=== PATIENT | female | born 1995 | race Caucasian/White ===

== ENCOUNTER 2016-10-27 09:44 | Emergency (ER) | payer MEDICAID, OTHER ==
[~2016-10-27] VITALS: Ht 175.3 cm; Wt 75.0 kg
[~2016-10-27 09:44] MED LIST: IBUP600 PO; PERI8.6T PO
[2016-10-27 09:45] VITALS: BP 136/81; PULSE 92; RESP 15; TEMP 98.1; O2SAT 99
--- NOTE | 2016-10-27 10:01 | PD ---
HPI Chief Complaint: Eye Problems/Injury Time Seen by Provider: 09:53 Travel History International Travel<30 days: No Contact w/Intl Traveler<30days: No Traveled to known affect area: No History of Present Illness HPI 21-year-old female presents the emergency Department with left eye itching and discharge this morning. Patient states recently her son had similar symptoms treated last week. She denies fever, chills, ear pain, sore throat, or other constitutional symptoms. She denies visual changes. She does not wear contacts. She denies any other injury. Patient states the eye is itchy but not painful. She is allergic to Augmentin. PFSH Past Medical History ?: Not Social History Alcohol Use: No Tobacco Use: No Allergies-Medications (Allergen,Severity, Reaction): Coded Allergies: Augmentin (Verified Adverse Reaction, Mild, Cramping, 02/05/15) Reported Meds & Prescriptions Reported Meds & Active Scripts Active Rachel-Colace 8.6-50 mg (Sennosides-Docusate Sodium) 1 Tab Tab 2 Tab PO Q12H PRN Motrin 600 Mg Tab (Ibuprofen) 600 Mg Tab 600 Mg PO Q6H PRN Review of Systems Except as stated in HPI: all other systems reviewed are Neg General / Constitutional: No: Fever Eyes: Positive: Drainage, Redness, Foreign Body Sensation, No: Diploplia, Blurred Vision, Photophobia, Pain, Tearing, Blind Spots, Visual changes, Blindness HENT: No: Headaches, Vertigo, Lightheadedness, Sore Throat, Rhinitis, Rhinorrhea, Congestion, Nosebleed, Neck Stiffness, Neck Pain, Earache Cardiovascular: No: Chest Pain or Discomfort Respiratory: No: Shortness of Breath Gastrointestinal: No: Abdominal Pain Genitourinary: No: Dysuria Musculoskeletal: No: Pain Skin: No Rash Neurologic: No: Weakness Psychiatric: No: Depression Endocrine: No: Polydipsia Hematologic/Lymphatic: No: Easy Bruising Physical Exam Narrative GENERAL: Patient is in no acute distress. SKIN: Warm and dry. Normal color. Normal turgor. No rash. HEAD: Atraumatic. Normocephalic. EYES: Pupils equal and round. No scleral icterus. Mild injection in the left conjunctiva with small amount of purulent drainage noted. Right eye is normal. ENT: No nasal bleeding or discharge. Mucous membranes pink and moist. TMs are clear bilaterally. Pharynx is clear. Airway is patent. NECK: Trachea midline. Supple nontender without lymphadenopathy. CARDIOVASCULAR: Regular rate and rhythm. RESPIRATORY: No accessory muscle use. Clear to auscultation. Breath sounds equal bilaterally. MUSCULOSKELETAL: Extremities without clubbing, cyanosis, or edema. No obvious deformities. NEUROLOGICAL: Awake and alert. No obvious cranial nerve deficits. Motor grossly within normal limits. Five out of 5 muscle strength in the arms and legs. Normal speech. PSYCHIATRIC: Appropriate mood and affect; insight and judgment normal. Data Data Last Documented VS Vital Signs Date Time Temp Pulse Resp B/P Pulse Ox O2 Delivery O2 Flow Rate FiO2 10/27/16 09:45 98.1 92 15 136/81 99 MDM Medical Decision Making Medical Screen Exam Complete: Yes Emergency Medical Condition: Yes Differential Diagnosis Upper respiratory infection. Conjunctivitis. Corneal abrasion Narrative Course Patient will be treated for conjunctivitis with Maxitrol ophthalmic drops every 4 hours while awake for the next 5-7 days. Work note is given. Patient to follow up if symptoms do not improve or worsen as discussed. Diagnosis Primary Impression: Conjunctivitis Qualified Code: H10.32 - Acute conjunctivitis of left eye, unspecified acute conjunctivitis type Referrals: Resort Desk Clerk Patient Instructions: Conjunctivitis (ED), General Instructions Departure Forms: Work Release Enter return to work date: Oct 28, 2016 Additional Instructions: Patient will be treated for conjunctivitis with Maxitrol ophthalmic drops every 4 hours while awake for the next 5-7 days. Work note is given. Patient to follow up if symptoms do not improve or worsen as discussed. Med/Other Pt SpecificInfo: Prescription(s) given Disposition: 01 DISCHARGE HOME Condition: Stable Randal Armijo Oct 27, 2016 10:01
[2016-10-27] MEDS ORDERED: MAXI5O EACH EYE (10:02)
== END 2016-10-27 10:11 | disposition home or self-care (01) ==
LOC: NEPK 09:44
DX: H10.32 Unspecified acute conjunctivitis, left eye (principal)
CPT/HCPCS: 99283

== ENCOUNTER 2017-06-28 22:52 | Emergency (ER) | payer MEDICAID ==
[~2017-06-28 22:52] MED LIST changes: -IBUP600 PO; +MAXI5O EACH EYE; -PERI8.6T PO
[2017-06-28] MEDS ORDERED: SE-NTAB3 PO (23:42)
[2017-06-28] MEDS ORDERED: ONDANSETRON ODT 4 MG TAB PO ONE (23:45)
[2017-06-28] MEDS ORDERED: diphenhydrAMINE HCL 50 MG CAP PO ONE (23:45)
--- NOTE | 2017-06-28 23:46 | PD ---
HPI Chief Complaint OSULLIVAN, N/V Date Seen: Jun 28, 2017 Time Seen: 23:36 Travel History International Travel<30 Days: No Contact w/Intl Traveler<30Days: No Known Affected Area: No History of Present Illness HPI pt. is a 22 y/o @ 36 6/7 weeks present w/ c/o osullivan, n/v. pt. states over the last day has had increased n/v, especially with osullivan. pt. states has had frontal osullivan for the last day. pt. states had some dizziness when stands. has some frontal facial pressure relieved when stands. pt. w/ h/o seasonal allergies. +FM, no LOF/VB. denies scotomata/visual disturbances/aura. no cp/ sob. able to saurabh po. Weeks Gestation: 36 Para: 2 : 3 History Past Medical History Medical History: Denies Significant Hx Past Surgical History Surgical History: No Previous Surgery Family History Family History: Negative Social History Alcohol Use: No Tobacco Use: No Substance Abuse: No Allergies-Medications (Allergen,Severity, Reaction): Coded Allergies: amoxicillin (Unverified Adverse Reaction, Mild, Cramping, 12/10/16) clavulanic acid (Unverified Adverse Reaction, Mild, Cramping, 12/10/16) Home Meds Active Scripts Fmzbvpvi-Xpmwikqns-Cjolxocdvmdxi Opth Drops (Maxitrol Opth Drops) 3.5-10,000- 0.1 Mg-Units-% Susp, 1 DROP EACH EYE Q4H for Infection, #1 BOTTLE Prov:Mariah Rhodes MD 10/27/16 Review of Systems Except as stated in HPI: all other systems reviewed are Neg Physical Exam Narrative GENERAL: Well-nourished, well-developed patient. SKIN: Warm and dry. HEAD: Normocephalic and atraumatic. EYES: No scleral icterus. No injection or drainage. ENT: No nasal drainage noted. Mucous membranes pink. Airway patent. NECK: Supple, trachea midline. No JVD. CARDIOVASCULAR: Regular rate and rhythm without murmurs, gallops, or rubs. RESPIRATORY: Breath sounds equal bilaterally. No accessory muscle use. ABDOMEN/GI: Abdomen soft, non-tender, bowel sounds present, no rebound, no guarding Gravid FHT's: Category: 1 Reactive: + Variability: mod Decels: none EXTREMITIES: No cyanosis or edema. BACK: Nontender without obvious deformity. No CVA tenderness. NEUROLOGICAL: Awake and alert. Motor and sensory grossly within normal limits. Five out of 5 muscle strength in all muscle groups. Normal speech. Data Data Vital Signs Reviewed: Yes Orders Orders Diphenhydramine (Benadryl) (06/28/17 23:45) Ondansetron Odt (Zofran Odt) (06/28/17 23:45) [facility] Medical Record Reviewed: Yes Plan @ 36 6/7 weeks w/ most prob sinusitis 2/2 allergies. condition d/w pt. pt. given 50mg benadryl and 4mg zofran w/ resolution. pt. to be d/c to home. pt. given precautions for return. all ? answered. f/u as sched. Diagnosis Diagnosis: Primary Impression: Allergic rhinitis Additional Impression: 36 weeks gestation of Deejay Frankel Jr., MD Jun 28, 2017 23:45
== END 2017-06-29 00:21 | disposition home or self-care (01) ==
LOC: HOBED 22:52
DX: O99.513 Diseases of the respiratory system complicating pregnancy, third trimester (principal); J30.9 Allergic rhinitis, unspecified; Z3A.36 36 weeks gestation of pregnancy
CPT/HCPCS: 59025; 99285; Q0163

== ENCOUNTER 2017-07-15 15:34 | Inpatient (IN) | payer MEDICAID ==
[~2017-07-15] VITALS: Ht 175.3 cm; Wt 98.0 kg
[2017-07-15] VITALS (60 sets, daily range): BP systolic 112–147; BP diastolic 34–88; PULSE 74–113; RESP 18; TEMP 98.1; O2SAT 99–100
[~2017-07-15 15:34] MED LIST changes: +SE-NTAB3 PO
--- NOTE | 2017-07-15 17:27 | HHI.HP ---
HPI Chief Complaint new swelling, elevated BP at routine OB visit Date Seen: Jul 15, 2017 Travel History International Travel<30 Days: No Contact w/Intl Traveler<30Days: No Known Affected Area: No History of Present Illness HPI 22 yo with cortes IUP at 39w2d presents for routine OB visit today, c /o new swelling over past week and vaginal bleeding since 2am. No contractions , no leakage of fluid. Decreased movement. No vision changes or headaches, no RUQ pain. BP is elevated in office 130/78. +1 proteinuria on Udip. Weeks Gestation: 39 Para: 2 : 3 Last Menstrual Period: Oct 04, 2016 Miscarriage: 0 : 0 History Past Medical History Narrative Medical history of chlamydia in 01/2017 & 04/2017 (reinfection, had negative test of cure 02/2017 & 05/2017) history of gestational diabetes with G1 Obstetric History Obstetric History FT 02/06/14 female 6#8oz gestational diabetes FT 02/05/15 male 8#11oz Past Surgical History Narrative Surgical tonsillectomy Family History Family History: Negative Social History Alcohol Use: No Tobacco Use: No Substance Abuse: No Allergies-Medications (Allergen,Severity, Reaction): Coded Allergies: amoxicillin (Verified Adverse Reaction, Mild, Cramping, 07/15/17) clavulanic acid (Verified Adverse Reaction, Mild, Cramping, 07/15/17) Home Meds Reported Medications Vit W/ Docusate-Fe Fu (Se- 19 29-1 mg) 29 Mg Iron-1 Mg-25 Mg Tab, 1 TAB PO DAILY for Nutritional Supplement, TAB 0 Refills 06/28/17 Discontinued Scripts Lftpaeyn-Poximlvxt-Cjjthnhdxjavb Opth Drops (Maxitrol Opth Drops) 3.5-10,000- 0.1 Mg-Units-% Susp, 1 DROP EACH EYE Q4H for Infection, #1 BOTTLE Prov:Mariah Rhodes MD 10/27/16 Review of Systems General / Constitutional: Weight Gain, No: Fever, Chills, Other Eyes: No: Diploplia, Blurred Vision, Visual changes, Pain, Photophobia HENT: No: Headaches, Vertigo, Lightheadedness Cardiovascular: No: Irregular Rhythm, Chest Pain or Discomfort, Palpitations, Tachycardia, Syncope, Varicosities, Edema, Cyanosis Respiratory: No: Cough, Short of Breath, Other Gastrointestinal: No: Nausea, Vomiting, Diarrhea Genitourinary: Pelvic Pain, Vaginal Bleeding, No: Decreased Urinary Output, Oliguria Musculoskeletal: Edema, No: Limited ROM, Weakness, Cramping, Pain Skin: No Rash, No Itching, No Dryness, No Lumps, No Change in Pigmentation, No Change in Nails, No Alopecia, No Lesions Neurologic: No: Weakness, Dizziness, Syncope, Focal Abnormalities, Coordination Problem, Headache, Slurred Speech, Seizures Psychiatric: No: Depression, Suicidal Ideations, Homicidal Ideation Endocrine: No: Heat Intolerance, Cold Intolerance, Polydipsia, Polyuria, Other Physical Exam Narrative GENERAL: Well-nourished, well-developed patient. swollen appearance SKIN: Warm and dry. HEAD: Normocephalic and atraumatic. EYES: No scleral icterus. No injection or drainage. ENT: No nasal drainage noted. Mucous membranes pink. Airway patent. NECK: Supple, trachea midline. No JVD. CARDIOVASCULAR: Regular rate and rhythm without murmurs, gallops, or rubs. RESPIRATORY: Breath sounds equal bilaterally. No accessory muscle use. BREASTS: ABDOMEN/GI: Abdomen soft, non-tender, bowel sounds present, no rebound, no guarding Gravid to [39] weeks size Fundal Height: [40] GENITOURINARY: External Genitalia: intact and normal in appearance BUS glands: [wnl] Cervix: [mid] Dilatation: [2] Effacement: [50] Station: [-2] Presentation: [vtx] Membranes: [intact] FHT's: +140s in office EXTREMITIES: No cyanosis, +2 edema to b/l shins. BACK: Nontender without obvious deformity. No CVA tenderness. NEUROLOGICAL: Awake and alert. Motor and sensory grossly within normal limits. Five out of 5 muscle strength in all muscle groups. Normal speech. Caprini VTE Risk Assessment Caprini VTE Risk Assessment: No/Low Risk (score <= 1) VTE Pharm Contraindication: High risk for bleeding Caprini Risk Assessment Model Point Value = 1 Point Value = 2 Point Value = 3 Point Value = 5 Age 41-60 Minor surgery BMI > 25 kg/m2 Swollen legs Varicose veins or History of unexplained or recurrent spontaneous Oral contraceptives or hormone replacement Sepsis (< 1 month) Serious lung disease, including pneumonia (< 1 month) Abnormal pulmonary function Acute myocardial infarction Congestive heart failure (< 1 month) History of inflammatory bowel disease Medical patient at bed rest Age 61-74 Arthroscopic surgery Major open surgery (> 45 min) Laparoscopic surgery (> 45 min) Malignancy Confined to bed (> 72 hours) Immobilizing plaster cast Central venous access Age >= 75 History of VTE Family history of VTE Factor V Leiden Prothrombin [id number] Lupus anticoagulant Anticardiolipin antibodies Elevated serum homocysteine Heparin-induced thrombocytopenia Other congenital or acquired thrombophilia Stroke (< 1 month) Elective arthroplasty Hip, pelvis, or leg fracture Acute spinal cord injury (< 1 month) Prophylaxis Regimen Total Risk Factor Score Risk Level Prophylaxis Regimen 0-1 Low Early ambulation 2 Moderate Order ONE of the following: *Sequential Compression Device (SCD) *Heparin 5000 units SQ BID 3-4 Higher Order ONE of the following medications: *Heparin 5000 units SQ TID *Enoxaparin/Lovenox 40 mg SQ daily (WT < 150 kg, CrCl > 30 mL/min) *Enoxaparin/Lovenox 30 mg SQ daily (WT < 150 kg, CrCl > 10-29 mL/min) *Enoxaparin/Lovenox 30 mg SQ BID (WT < 150 kg, CrCl > 30 mL/min) AND/OR *Sequential Compression Device (SCD) 5 or more Highest Order ONE of the following medications: *Heparin 5000 units SQ TID (Preferred with Epidurals) *Enoxaparin/Lovenox 40 mg SQ daily (WT < 150 kg, CrCl > 30 mL/min) *Enoxaparin/Lovenox 30 mg SQ daily (WT < 150 kg, CrCl > 10-29 mL/min) *Enoxaparin/Lovenox 30 mg SQ BID (WT < 150 kg, CrCl > 30 mL/min) AND *Sequential Compression Device (SCD) Data Data Vital Signs Reviewed: Yes Group B Strep: Positive Assessment/Plan Problem List: (1) Gestational hypertension ICD Codes: O13.9 - Gestational [-induced] hypertension without significant proteinuria, unspecified trimester Status: Acute Qualifiers: Qualified Codes: O13.3 - Gestational [-induced] hypertension without significant proteinuria, third trimester (2) Vaginal bleeding during ICD Codes: O46.90 - Antepartum hemorrhage, unspecified, unspecified trimester Status: Acute Assessment and Plan 22 yo with cortes IUP at 39w2d by 12w sonogram, presented to office visit with new elevated BP, edema, proteinuria, and vaginal bleeding. 1) new elevated BP and proteinuria: admit to [facility] for serial BPs and PIH workup, d /w pt may need labor induction if persistent abnormality; pt agreeable; favorable Henriquez score, multip 2) GBS +, for PPX in labor 3) status: vertex, reassuring FHTs in office Discharge Planning not meeting criteria Juanita Can MD Jul 15, 2017 17:27
[2017-07-15 17:45] LABS: AUTOMATED NEUTROPHIL # 11.2 TH/MM3 (1.8-7.7); BASOPHIL # 0.1 TH/MM3 (0-0.2); BASOPHIL % 0.4 % (0.0-2.0); EOSINOPHIL # 0.1 TH/MM3 (0-0.4); EOSINOPHIL % 0.6 % (0.0-4.0); HEMATOCRIT 39.5 % (35.0-46.0); HEMOGLOBIN 13.4 GM/DL (11.6-15.3); LYMPH % 18.5 % (9.0-44.0); LYMPHOCYTE # 2.8 TH/MM3 (1.0-4.8); MEAN CELL VOLUME 80.5 FL (80.0-100.0); MEAN CORPUSCULAR HEMOGLOBIN 27.4 PG (27.0-34.0); MEAN PLATELET VOLUME 7.9 FL (7.0-11.0); MONO % 5.9 % (0.0-8.0); MONOCYTE # 0.9 TH/MM3 (0-0.9); NEUT % 74.6 % (16.0-70.0); PLATELET COUNT 290 TH/MM3 (150-450); RED BLOOD COUNT 4.91 MIL/MM3 (4.00-5.30); RED CELL DISTRIBUTION WIDTH 13.3 % (11.6-17.2)
[2017-07-15 18:17] LABS: BILIRUBIN, URINE NEG (NEG); BLOOD, URINE NEG (NEG); GLUCOSE,URINE NEG (NEG); KETONE, URINE NEG (NEG); NITRITE,URINE NEG (NEG); PH, URINE 5.5 (5.0-8.5); SQUAMOUS EPITHELIAL CELL URINE <1 /hpf (0-5); URINE COLOR YELLOW (YELLW/STRAW); URINE LEUKOCYTE ESTERASE NEG (NEG)
[2017-07-15 18:19] LABS: ALKALINE PHOSPHATASE 74 U/L (45-117); TOTAL BILIRUBIN ADULT 0.4 MG/DL (0.2-1.0); TOTAL PROTEIN 6.8 GM/DL (6.4-8.2)
[2017-07-15 18:22] LABS: ALBUMIN 2.7 GM/DL (3.4-5.0); ALT (GPT) 16 U/L (10-53); AST (GOT) 23 U/L (15-37); BICARBONATE 25.6 MEQ/L (21.0-32.0); BLOOD UREA NITROGEN 11 MG/DL (7-18); CALCIUM 8.7 MG/DL (8.5-10.1); CHLORIDE 104 MEQ/L (98-107); CREATININE 0.57 MG/DL (0.50-1.00); GLOMERULAR FILTRATION RATE 130 ML/MIN (>89); GLUCOSE,RANDOM 64 MG/DL (74-106); SODIUM (NA) 138 MEQ/L (136-145)
[2017-07-15] MEDS ORDERED: LACTATED RINGER'S 1000 ML INJ 1,000 ML IV PRN (18:55)
[2017-07-15] MEDS ORDERED: LIDOCAINE HCL 1% 50 ML VIAL I-DERMAL PRN (19:00)
[2017-07-15] MEDS ORDERED: SODIUM CHLORIDE 0.9% FLUSH 10 ML FLUSH IV FLUSH PRN (19:00)
[2017-07-15] MEDS ORDERED: MINERAL OIL 10 ML VIAL TOPICAL PRN (19:00)
[2017-07-15] MEDS ORDERED: SODIUM CHLORID 0.9% 500 ML INJ 500 ML IV PRN (19:00)
[2017-07-15] MEDS ORDERED: PENICILLIN G POTASSIUM INJ 5,000,000 UNITS in SODIUM CHLORIDE 0.9% INJ 100 ML IV ONE (19:00)
[2017-07-15] MEDS ORDERED: CITRIC ACID-SODIUM CITRATE LIQ 30 ML UDC PO SCH (19:00)
[2017-07-15] MEDS ORDERED: LACTATED RINGER'S 1000 ML INJ 1,000 ML IV SCH (19:00)
[2017-07-15] MEDS ORDERED: ONDANSETRON HCL 4 MG/2 ML VIAL IV PUSH PRN (19:00)
[2017-07-15] MEDS ORDERED: LIDOCAINE HCL 1% 50 ML VIAL INFIL PRN (19:00)
[2017-07-15] MEDS ORDERED: OXYTOCIN 30 UNITS-500ML PREMIX 500 ML IV ONE (19:00)
--- NOTE | 2017-07-15 19:13 | HHI.PR ---
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 A/P: 22 yo at 39w2d by 12w US, orginally sent for obs and r/ow PREC but now in labor. 1. IUP: cat 1-2 tracing - cephalic, GBS pos, EFW 7-8lbs 2. Labor: still in latent labor, if no further change, asked OB hospitalist to AROM. 3. GHTN: new dx today, BPs mild range to normotensive, HELLP labs and P:C WNL, no sn/sx of prec, continue to trend BPs. 4. GBS pos: continue PCN for ppx, augmentin caused her GI upset in past Obinna Burnette MD Jul 15, 2017 19:13
[2017-07-15] MEDS ORDERED: SODIUM CHLOR 0.9% 1000 ML INJ 1,000 ML IV PRN (19:15)
[2017-07-15] MEDS ORDERED: fentaNYL 2MCG-BUPIV 0.125% INJ 100 ML ONE (20:32)
[2017-07-15] MEDS ORDERED: ePHEDrine/NS 25 MG/5 ML SYRINGE ONE (20:32)
[2017-07-15] MEDS ORDERED: SODIUM CHLORIDE 0.9% FLUSH 10 ML FLUSH IV FLUSH SCH (21:00)
[2017-07-15] MEDS ORDERED: ePHEDrine/NS 25 MG/5 ML SYRINGE IV PUSH PRN (21:30)
[2017-07-15] MEDS ORDERED: DO NOT ADMINISTER ANTICOAGULANTS PRN (21:30)
[2017-07-15] MEDS ORDERED: fentaNYL 2MCG-BUPIV 0.125% 100 ML EPIDURAL SCH (21:30)
[2017-07-15] MEDS ORDERED: NO SYSTEM NARCOTICS PRN (21:30)
[2017-07-15] MEDS ORDERED: PENICILLIN G POTASSIUM INJ 2,500,000 UNITS in SODIUM CHLORIDE 0.9% INJ 100 ML IV SCH (23:00)
[2017-07-15] MEDS ORDERED: LIDOCAINE HCL 1% 20 ML VIAL ONE (23:44)
[2017-07-16] VITALS (15 sets, daily range): BP systolic 124–156; BP diastolic 70–86; PULSE 73–107; RESP 18–20; TEMP 97.9–99.2; O2SAT 98–100
--- NOTE | 2017-07-16 00:23 | HHI.DCPOC ---
Discharge Care Plan Diagnosis: (1) (normal spontaneous vaginal delivery) (2) 39 weeks gestation of (3) Gestational hypertension Your Health Problems Are: Vaginal delivery Report Symptoms to Your Doctor -Temperature above 100.5 degrees -Redness, of incision or excessive or foul smelling drainage -Unusual pain or calf pain -Increased vaginal bleeding -Painful or difficulty urinating -Feelings of extreme sadness or anxiety after 2 weeks Goals to Promote Your Health * To prevent worsening of your condition and complications * To maintain your health at the optimal level Directions to Meet Your Goals Take your medications as prescribed Follow your dietary instruction Follow activity as directed Ensure plenty of rest for recovery Drink fluids for hydration Keep your appointments as scheduled Take your immunizations and boosters as scheduled If your symptoms worsen call your PCP, if no PCP go to Urgent Care Center or Emergency Room Smoking is Dangerous to Your Health. Avoid second hand smoke Call the 24-hour crisis hotline for domestic abuse at Obinna Burnette MD Jul 16, 2017 00:22
--- NOTE | 2017-07-16 00:23 | PD.OB.DELI ---
Weeks gestation: 39 (39 weeks 3 days) Pt started active labor?: Yes Medical induction of labor?: No Artificial ROM date: Jul 16, 2017 Anesthesia: Epidural Episiotomy: None Vaginal Delivery: Normal, Spontaneous Presentation: Occiput anterior, Vertex Nuchal Cord: x1 (Reduced at perineum prior to delivery) Delayed cord clamping (45 sec): Yes Shoulder Dystocia: Other (No dystocia) : Female, Single Delivery date: Jul 16, 2017 Delivery time: 12:10 One Minute : 7 Five Minute : 9 Placenta: Spontaneous delivery, Intact, 3 vessel cord, Other (Within 30 minutes of delivery of infant) Laceration: No lacerations Estimated blood loss: 300 cc Additional Information Preoperative diagnoses: 1. Intrauterine 39 weeks and 3 days 2. Thin meconium 3. GBS positive status 4. Gestational hypertension Specimen: Placenta to disposal Additional findings: Thin meconium, vigorous , cord was clamped and cut at 45 seconds and handed to team for resuscitation Complications: None Description of procedure: The patient began pushing after the bed was broken down, the head upon was allowed to restitute naturally for delivery with a supported perineum, nuchal cord was reduced, with gentle downward guidance the anterior shoulder was delivered followed by gentle upper guidance for the posterior shoulder, the torso and lower extremities were delivered with ease and with continued perineal support. The had spontaneous cry and was placed on mom's abdomen for skin to skin contact, we allowed delayed cord clamping. After the cord was clamped and cut, cord blood was obtained. Pitocin was bolused and with fundal massage the placenta was delivered, there is minimal uterine bleeding and uterus was firm. The perineum, vagina and cervix were inspected and found intact. The patient tolerated the procedure well and was left in the birthing suite with her . Obinna Burnette MD Jul 16, 2017 00:23
[2017-07-16] MEDS ORDERED: WITCH HAZEL 50%/GLYCERIN 12.5% 40 PAD JAR TOPICAL PRN (00:30)
[2017-07-16] MEDS ORDERED: ACETAMINOPHEN 325 MG TAB PO PRN (00:30)
[2017-07-16] MEDS ORDERED: ONDANSETRON ODT 4 MG TAB PO PRN (00:30)
[2017-07-16] MEDS ORDERED: ALUMINUM/MAGNESIUM/SIMETH 30 ML CUP PO PRN (00:30)
[2017-07-16] MEDS ORDERED: ZOLPIDEM TARTRATE 5 MG TAB PO PRN (00:30)
[2017-07-16] MEDS ORDERED: BENZOCAINE 20% TOPICAL SPRAY 60 ML CAN TOPICAL PRN (00:30)
[2017-07-16] MEDS ORDERED: IBUPROFEN 800 MG TAB PO PRN (00:30)
[2017-07-16] MEDS ORDERED: OXYTOCIN 30 UNITS-500ML PREMIX 500 ML IV SCH (00:30)
[2017-07-16] MEDS ORDERED: DOCUSATE SODIUM 50 MG/SENNA 8.6 MG TAB PO PRN (00:30)
[2017-07-16] MEDS ORDERED: oxyCODONE/ACETAMINOPHEN 5 MG/325 MG TAB PO PRN ×2 (00:30)
[2017-07-16] MEDS ORDERED: SODIUM CHLORIDE 0.9% FLUSH 10 ML FLUSH IV FLUSH PRN (00:30)
[2017-07-16] MEDS ORDERED: SODIUM CHLORIDE 0.9% FLUSH 10 ML FLUSH IV FLUSH SCH (09:00)
[2017-07-16] MEDS ORDERED: MEASLES, MUMPS, RUBELLA VACCINE 0.5 ML VIAL SQ ONE (16:00)
[2017-07-16] MEDS ORDERED: DIPHTH/TETANUS/ACEL PERTUSSIS (BOOSTER) 0.5 ML VIAL/PFS IM ONE (16:00)
[2017-07-17 08:10] VITALS: BP 130/76; PULSE 81; RESP 16; TEMP 97.7
--- NOTE | 2017-07-17 11:13 | HHI.OB ---
Subjective Post Day: 1 Remarks doing well no issues nursing Objective Vitals/I&O Vital Signs Date Time Temp Pulse Resp B/P (MAP) Pulse Ox O2 Delivery O2 Flow Rate FiO2 07/17/17 08:10 97.7 81 16 130/76 (94) 07/16/17 19:20 97.9 79 18 137/86 (103) 98 07/16/17 15:30 140/80 (100) Objective Remarks blood pressures normal GENERAL: Well-nourished, well-developed patient. CARDIOVASCULAR: Regular rate and rhythm without murmurs, gallops, or rubs. RESPIRATORY: Breath sounds equal bilaterally. No accessory muscle use. ABDOMEN/GI: Abdomen soft, non-tender. Fundus: Firm, non-tender at umbilicus. GENITOURINARY: Light to moderate bleeding. EXTREMITIES: No cyanosis or edema, non-tender, without signs of DVT. Medications and IVs Current Medications Medications (Trade) Dose Ordered Sig/Tomer Route Start Time Stop Time Status Last Admin (Xylocaine 1% Inj (50 ml)) 0.1 ml UNSCH X1 PRN I-DERMAL 07/15/17 19:00 07/18/17 18:59 (Xylocaine 1% Inj (50 ml)) 10 ml UNSCH X1 PRN INFIL 07/15/17 19:00 07/17/17 18:59 (NS Flush) 2 ml BID IV FLUSH 07/16/17 09:00 (NS Flush) 2 ml UNSCH PRN IV FLUSH 07/16/17 00:30 (Tylenol) 650 mg Q4H PRN PO 07/16/17 00:30 (Motrin) 800 mg Q8H PRN PO 07/16/17 00:30 (Percocet 5-325 Mg) 1 tab Q4H PRN PO 07/16/17 00:30 (Percocet 5-325 Mg) 2 tab Q4H PRN PO 07/16/17 00:30 (Americaine 20% Top Spr) 1 spray Q4H PRN TOPICAL 07/16/17 00:30 (Tucks Pads) 1 applic QID PRN TOPICAL 07/16/17 00:30 (Rachel-Colace) 2 tab Q12H PRN PO 07/16/17 00:30 (Ambien) 5 mg HS PRN PO 07/16/17 00:30 (Mag-Al Plus Susp Liq) 15 ml Q8H PRN PO 07/16/17 00:30 (Zofran Odt) 4 mg Q6H PRN PO 07/16/17 00:30 Assessment/Plan Problem List: (1) Gestational hypertension ICD Codes: O13.9 - Gestational [-induced] hypertension without significant proteinuria, unspecified trimester Status: Acute Qualifiers: Qualified Codes: O13.3 - Gestational [-induced] hypertension without significant proteinuria, third trimester (2) Vaginal bleeding during ICD Codes: O46.90 - Antepartum hemorrhage, unspecified, unspecified trimester Status: Acute Assessment and Plan 22 yo with cortes IUP at 39w2d by 12w sonogram, presented to office visit with new elevated BP, edema, proteinuria, and vaginal bleeding. 1) new elevated BP and proteinuria: admit to [facility] for serial BPs and PIH workup, d /w pt may need labor induction if persistent abnormality; pt agreeable; favorable Henriquez score, multip 2) GBS +, for PPX in labor 3) status: vertex, reassuring FHTs in office PPD 1 no issues today. BPs resolved plan for discharge Thursday Discharge Planning not meeting criteria Alba Salvador MD Jul 17, 2017 11:13
[2017-07-17 20:00] VITALS: BP 150/77; PULSE 78; RESP 20; TEMP 98.1; O2SAT 97
[2017-07-18 07:00] VITALS: BP 153/69; PULSE 89; RESP 20; TEMP 98; O2SAT 97
--- NOTE | 2017-07-18 07:31 | HHI.OB ---
Subjective Post Day: 2 Remarks Doing well with nursing third child no issues Objective Vitals/I&O Vital Signs Date Time Temp Pulse Resp B/P (MAP) Pulse Ox O2 Delivery O2 Flow Rate FiO2 07/18/17 07:00 98.0 89 20 153/69 (97) 97 07/17/17 20:00 78 20 150/77 (101) 97 07/17/17 20:00 98.1 07/17/17 08:10 97.7 81 16 130/76 (94) Objective Remarks blood pressures normal GENERAL: Well-nourished, well-developed patient. CARDIOVASCULAR: Regular rate and rhythm without murmurs, gallops, or rubs. RESPIRATORY: Breath sounds equal bilaterally. No accessory muscle use. ABDOMEN/GI: Abdomen soft, non-tender. Fundus: Firm, non-tender at umbilicus. GENITOURINARY: Light to moderate bleeding. EXTREMITIES: No cyanosis or edema, non-tender, without signs of DVT. Medications and IVs Current Medications Medications (Trade) Dose Ordered Sig/Tomer Route Start Time Stop Time Status Last Admin (Xylocaine 1% Inj (50 ml)) 0.1 ml UNSCH X1 PRN I-DERMAL 07/15/17 19:00 07/18/17 18:59 (NS Flush) 2 ml BID IV FLUSH 07/16/17 09:00 (NS Flush) 2 ml UNSCH PRN IV FLUSH 07/16/17 00:30 (Tylenol) 650 mg Q4H PRN PO 07/16/17 00:30 (Motrin) 800 mg Q8H PRN PO 07/16/17 00:30 (Percocet 5-325 Mg) 1 tab Q4H PRN PO 07/16/17 00:30 (Percocet 5-325 Mg) 2 tab Q4H PRN PO 07/16/17 00:30 (Americaine 20% Top Spr) 1 spray Q4H PRN TOPICAL 07/16/17 00:30 (Tucks Pads) 1 applic QID PRN TOPICAL 07/16/17 00:30 (Rachel-Colace) 2 tab Q12H PRN PO 07/16/17 00:30 (Ambien) 5 mg HS PRN PO 07/16/17 00:30 (Mag-Al Plus Susp Liq) 15 ml Q8H PRN PO 07/16/17 00:30 (Zofran Odt) 4 mg Q6H PRN PO 07/16/17 00:30 Assessment/Plan Problem List: (1) Gestational hypertension ICD Codes: O13.9 - Gestational [-induced] hypertension without significant proteinuria, unspecified trimester Status: Acute Qualifiers: Qualified Codes: O13.3 - Gestational [-induced] hypertension without significant proteinuria, third trimester (2) Vaginal bleeding during ICD Codes: O46.90 - Antepartum hemorrhage, unspecified, unspecified trimester Status: Acute Assessment and Plan 22 yo with cortes IUP at 39w2d by 12w sonogram, presented to office visit with new elevated BP, edema, proteinuria, and vaginal bleeding. 1) new elevated BP and proteinuria: admit to [facility] for serial BPs and PIH workup, d /w pt may need labor induction if persistent abnormality; pt agreeable; favorable Henriquez score, multip 2) GBS +, for PPX in labor 3) status: vertex, reassuring FHTs in office PPD 1 no issues today. BPs resolved plan for discharge Thursday PPD 2 Doing well normotensive nexplanon planned with [facility] home today Alba Salvador MD Jul 18, 2017 07:31
[2017-07-18] MEDS ORDERED: IBUP1TAB7 PO (07:32)
[2017-07-18 08:00] VITALS: BP 133/79; PULSE 80; RESP 20
== END 2017-07-18 12:33 | disposition home or self-care (01) | DRG 774 ==
LOC: OBSVTOIN 15:34 → H2EA 15:34 → H1EA 07-16 02:23
PROVIDERS: ADMIT Obstetrics & Gynecology; ATTEND Obstetrics & Gynecology
PROC: 10E0XZZ Delivery of Products of Conception, External Approach (ICD-10-PCS; principal; 2017-07-15)
PROC: 10907ZC Drainage of Amniotic Fluid, Therapeutic from Products of Conception, Via Natural or Artificial Opening (ICD-10-PCS; 2017-07-15)
DX: O14.94 Unspecified pre-eclampsia, complicating childbirth (principal); O46.93 Antepartum hemorrhage, unspecified, third trimester; O36.8130 Decreased fetal movements, third trimester, not applicable or unspecified; O99.824 Streptococcus B carrier state complicating childbirth; O69.81X0 Labor and delivery complicated by cord around neck, without compression, not applicable or unspecified; O77.0 Labor and delivery complicated by meconium in amniotic fluid; Z37.0 Single live birth; Z3A.39 39 weeks gestation of pregnancy; Z88.1 Allergy status to other antibiotic agents
CPT/HCPCS: 59025; 80053; 80307; 81001; 82570; 84156; 85025; J2540; J2590; J7120